=== PATIENT | female | born 1980 | race Asian ===

== ENCOUNTER → 2023-09-23 | Outpatient (CLI) | payer MEDICAID, SELFPAY ==
[2023-09-23 12:29] LABS: Absolute Lymphocyte Count 1.78 X10^3/uL (0.83-4.51); Absolute Neutrophil Count 3.2 X10^3/uL (2.0-7.7); Basophil# 0.12 X10^3/uL; Eosinophils% 11.5 % (0-5); Hematocrit 36.9 % (37-47); Hemoglobin 12.1 g/dL (12.0-15.0); Lymphocyte # 1.78 X10^3/ul (0.83-4.51); Lymphocyte % 29.2 % (19-41); Mean Corp Hgb Conc 32.8 g/dL (32-36); Mean Corpuscular Hgb 27.6 pg (27.0-32.0); Mean Corpuscular Volume 84.2 fL (81-99); Mean Platelet Vol. 8.9 fl (6.2-12.0); Monocyte# 0.32 X10^3/uL; Monocyte% 5.2 % (0-10); NRBC Flagged by Analyzer 0 % (0-5); Neutrophil # 3.16 X10^3/uL (2.7-7.7); Neutrophil % 51.8 % (47-70); Platelet Count 443 K/mm3 (150-450); RBC Distribution Width CV 12.7 % (11.6-14.6); RBC Distribution Width SD 39.1 fl (35.1-43.9); Red Blood Count 4.38 M/mm3 (4.2-5.4); White Blood Count 6.1 K/mm3 (4.4-11.0)
[2023-09-23 13:16] LABS: ALB/GLOB Ratio 1.1 RATIO (0.9-2.4); AST(SGOT) 23 U/L (15-37); Alanine Aminotransfer ALT/SGPT 26 U/L (13-56); Albumin, Serum 3.9 g/dL (3.2-5.0); Alkaline Phosphatase 41 U/L (45-117); Anion Gap 5 (5-15); BUN 10 mg/dL (7-18); BUN/Creat Ratio 12.9 RATIO (10-20); Calcium,Total 8.8 mg/dL (8.5-10.1); Chloride 107 mmol/L (98-107); Cholesterol 218 mg/dL (200); Creatinine, Serum 0.78 mg/dL (0.55-1.02); EST Glomerular Filtration Rate 85 mL/min (>60); Est Glom Filt Rate - Afr Amer 103 mL/min (>60); Globulin 3.7 g/dL (2.2-4.2); Glucose 117 mg/dL (74-106); High Density Lipoprotein 43 mg/dL; Potassium 4.2 mmol/L (3.5-5.1); Protein, Total 7.6 g/dL (6.4-8.2); Sodium Level 139 mmol/L (136-145); Triglycerides 315 mg/dL; Very Low Density Lipoprotein 63 mg/dL (5-40); Vitamin D,25 Hydroxy 21.2 ng/mL
== END | disposition home or self-care (01) ==
LOC: BIMLAB 10:18
PROVIDERS: PCP Internal Medicine; Referring Provider Internal Medicine; Visit Provider Internal Medicine
DX: E11.9 Type 2 diabetes mellitus without complications (principal); E55.9 Vitamin D deficiency, unspecified
CPT/HCPCS: 36415; 80053; 80061; 82306; 85025

== ENCOUNTER → 2023-09-25 | Outpatient (CLI) | payer MEDICAID, SELFPAY ==
[2023-09-25 12:59] LABS: Microalbumin,Random Urine 14.3 mg/L (NO RANGE EST.); Microalbumin:Creatinine Ratio 6.8 mg/g CRE (<30 mg/g CRE)
== END | disposition home or self-care (01) ==
LOC: BIMLAB 10:40
PROVIDERS: PCP Internal Medicine; Referring Provider Internal Medicine; Visit Provider Internal Medicine
DX: E11.9 Type 2 diabetes mellitus without complications (principal)
CPT/HCPCS: 82043; 82570

== ENCOUNTER → 2023-10-29 | Outpatient (CLI) | payer MEDICAID, SELFPAY ==
--- NOTE | 2023-10-29 08:40 | BI_ITS ---
MAMMOGRAPHY - BILATERAL SCREENING REASON FOR EXAM: Female, 43 years old. Routine annual screening examination. PERTINENT HISTORY: Non-contributory. TECHNIQUE: Digital bilateral breast pascale (3D mammographic acquisition) in the CC and MLO projections. 2-D mediolateral oblique (MLO) and craniocaudad (CC) views of both breasts were obtained. CAD: Full Field Digital Mammography with Computer Added Detection was performed. COMPARISON: Comparison is made with prior outside examination dated October 26, 2022. FINDINGS: Breast Composition: The breasts are heterogeneously dense, which may obscure small masses. There are no dominant masses or suspicious calcifications. Stable small benign appearing bilateral axillary lymph nodes. No other significant abnormalities are identified. There has been no significant change since the prior study. BI/SCRN MAMM (CAD)W/PASCALE BILAT IMPRESSION: Stable bilateral screening mammogram. Yearly follow-up mammogram recommended. (A) ASSESSMENT CATEGORY: BIRADS Category 1: Negative. A letter regarding these results will be sent to the patient by the facility within 30 days. Approximately 10% of breast cancers are not detected by mammography. A normal mammogram should not delay biopsy of a clinically suspicious abnormality. [id number] Electronically Signed: Eris Pollard MD at 11:19 EDT ,
== END | disposition home or self-care (01) ==
PROVIDERS: PCP Internal Medicine; Referring Provider Internal Medicine; Visit Provider Internal Medicine
DX: Z12.31 Encounter for screening mammogram for malignant neoplasm of breast (principal)
CPT/HCPCS: 77063; 77067

== ENCOUNTER 2024-01-17 08:30 | Day surgery (SDC) | payer MEDICAID, SELFPAY ==
[2024-01-17] VITALS (7 sets, daily range): BP systolic 99–116; BP diastolic 64–70; PULSE 62–80; RESP 16–17; TEMP 36.1–36.3; O2SAT 97–100; BMI 27.8
--- NOTE | 2024-01-17 08:43 | PCM.PRE.AN2 ---
ASA Classification* ASA Classification ASA Classification: 3 Assessment & Plan Anesthesia* Anesthesia Assessment Anesthesia Assessment: Discussed sedation and/or anesthesia options, risks, benefits, and alternatives with patient/parents/legal guardian/POA. Questions invited. The patient/parents/legal guardian/POA seems to understand and agrees to proceed with anesthesia plan. Reviewed the physical assessment, medical history, allergy history and patient home medications list prior to surgery/procedure/anesthetic and documented any changes. Performed airway and anesthesia risk assessments. Anesthesia Type Anesthesia Type: MAC (see written pre anesthesia record for full assessment) Anesthesia Focused Assessment* Airway Assessment Mouth opens: >3 cm Mallampati Score: II Focused Labs Anesthesia Preop lab: CBC WBC 6.1 K/mm3 (4.4-11.0) 09/23/23 10:19 RBC 4.38 M/mm3 (4.2-5.4) 09/23/23 10:19 Hgb 12.1 g/dL (12.0-15.0) 09/23/23 10:19 Hct 36.9 % (37-47) L 09/23/23 10:19 Plt Count 443 K/mm3 (150-450) 09/23/23 10:19 CHEMISTRY Potassium 4.2 mmol/L (3.5-5.1) 09/23/23 10:19 Sodium 139 mmol/L (136-145) 09/23/23 10:19 BUN 10 mg/dL (7-18) 09/23/23 10:19 Creatinine 0.78 mg/dL (0.55-1.02) 09/23/23 10:19 Glucose 117 mg/dL (74-106) H 09/23/23 10:19 COAG Pre-Assessment Diagnosis/Proposed Procedure Planned Operative Procedure(s): EGD, CSCOPE Anesthesia History Anesthesia History - field services manager: Anesthesia History - field services manager Hx Hospitalization No 01/15/24 10:25 Any Problems With Anesthesia No 01/15/24 10:25 Cholinesterase deficiency No 01/15/24 10:25 You/Your Family Experience No 01/15/24 10:25 fever (hyperthermia) with Relationship Recent Exposure to Contagious Disease Does patient have nerve No 01/15/24 10:25 stimulator Patient instructed to have device shut off --Does patient have Pacemaker or ICD? When Was Last Pacemaker Check QUESTION #4 FULL TEXT: You/Your Family Experience fever (hyperthermia) with Anesthesia Last Oral Intake Last Oral intake: Last Oral Intake NPO since Meds taken in AM with sips of water? Meds patient instructed to take am of surgery PONV PONV - field services manager: PONV - field services manager Female Yes 01/15/24 10:25 HX of Motion Sickness Yes 01/15/24 10:25 HX of N/V After Surgery No 01/15/24 10:25 Non-Smoker Yes 01/15/24 10:25 Duration of Surgery greater No 01/15/24 10:25 than 60 minutes Number of Risk Factors 3 01/15/24 10:25 PONV Score Moderate Risk 01/15/24 10:25 Height & Weight Height & Weight: Anesthesia: Height & Weight Height 5 ft 2 in 10/17/23 15:16 Respiratory Assessment Respiratory Assessment - field services manager: Respiratory Tract Infection Hx - field services manager Hx Respiratory Tract Infection No 01/15/24 10:25 STOP Sleep Apnea STOP Sleep Apnea - field services manager: STOP Sleep Apnea - field services manager Hx Hypertension No 01/15/24 10:25 Hx Sleep Apnea No 01/15/24 10:25 CPAP BIPAP Do you snore loudly (louder No 01/15/24 10:25 than talking or can be heard Do you often feel tired/ No 01/15/24 10:25 fatigued/ sleepy during daytime? Has anyone observed you stop No 01/15/24 10:25 breathing during sleep? STOP Results Negative 01/15/24 10:25 QUESTION #5 FULL TEXT : Do you snore loudly (louder than talking or can be heard through closed doors)? Tobacco Use History Tobacco Use History - field services manager: Tobacco Use History - field services manager Tobacco Use Smoking Status Former smoker 01/15/24 10:25 Hx Tobacco Use No 01/15/24 10:25 Years Smoking Packs Smoked per Day Smoking Cessation Date was Yes - quit smoking within 15 01/15/24 10:25 within the last 15 years years Hx Smoking Cessation Date 06/10/13 01/15/24 10:25 Hx Smoking Cessation Counseling Hematologic Medial History Hematologic Hx - field services manager: Hematologic Medical Hx - [employer] certified network professional Hx of Blood Transfusion No 01/15/24 10:25 Hx of Transfusion in last 3 No 01/15/24 10:25 Months Date of Last Transfusion (if within last 3 months) Ever experience any problems No 01/15/24 10:25 with transfusion(s)? Specify any problems Hx of Preganancy in last 3 No 01/15/24 10:25 Months Nurse Filling Out Transfusion VCHRISTIN 01/15/24 10:25 & Questions: Date: 01/15/24 01/15/24 10:25 Time: 10:25 01/15/24 10:25 Patient unable to answer at this time (ie. confused, unrespo /Reproduction History /Reproductive History - field services manager: /Reproductive Hx- field services manager Hx Now No 01/15/24 10:25 Gestational Age (in weeks): EDC: Hx Hx Para Hx Section SAB No 01/15/24 10:25 Active Medications Active Medications: Current Medications Generic Name Dose Route Start Last Admin Trade Name Freq PRN Reason Stop Dose Admin Lactated Ringer's 1,000 mls @ 15 mls/hr 01/17/24 08:45 IV .Q48H RAMON PFSH Medical History Wears glasses Anxiety Marijuana use Fatty liver Migraine headache High cholesterol History of back problems IBS (irritable bowel syndrome) Hyperlipemia, fat-induced Frequent headaches Depression Diabetes Arthritis Allergies Home Medications ?Medication ?Instructions ?Recorded ?Last Taken ?Type albuterol sulfate 90 mcg/actuation 2 puff inhalation Q6H PRN 09/23/23 Unknown Rx aerosol inhaler shortness of breath or wheezing #8.5 grams flash glucose scanning reader 09/23/23 Unknown History (FreeStyle Ileana 2 [place]) ibuprofen 200 mg capsule 200 mg PO Q6H PRN pain 09/23/23 Unknown History omeprazole 20 mg capsule,delayed 20 mg PO DAILY #30 caps 09/23/23 Unknown Rx release ondansetron 4 mg disintegrating 4 mg PO Q8 PRN nausea and vomiting 09/23/23 Unknown History tablet bupropion HCl 150 mg 24 hr tablet, 150 mg PO QAM #30 tabs 10/17/23 Unknown Rx extended release (Wellbutrin XL) flash glucose sensor (FreeStyle #6 ea 11/20/23 Unknown Rx Ileana 2 Sensor kit) metformin 1,000 mg tablet 1,000 mg PO BID #180 tabs 11/20/23 Unknown Rx montelukast 10 mg tablet 10 mg PO QDAY #90 tabs 11/20/23 Unknown Rx sertraline 50 mg tablet 50 mg PO DAILY #90 tabs 11/20/23 Unknown Rx dulaglutide 1.5 mg/0.5 mL 1.5 mg subcut MO 12/03/23 01/06/24 History subcutaneous pen injector (Trulicity) atorvastatin 10 mg tablet (Lipitor) 10 mg PO QHS #90 tabs 12/05/23 Unknown Rx fexofenadine 180 mg tablet 180 mg PO DAILY 01/15/24 Unknown History ([facility] Allergy) Allergy/AdvReac Type Severity Reaction Status Date / Time No Known Allergies Allergy Verified 12/03/23 12:29 Family History Mother Anesthesia complication Thyroid disorder Kidney disease Diabetes Hypertension Heart disease Brother Asthma Angina pectoris Hyperlipemia Myocardial infarction, Onset Age: 45 Diabetes Grandfather Cancer liver Liver disease Depression Grandmother Cancer Grandmother Colon cancer Sister Depression Father Depression Surgical History S/P appendectomy S/P partial hysterectomy History of ankle surgery Social History adopted: No household members: children number of children: 1 current occupational status: unemployed pets and animals: Yes (2) pets and animals: cat(s) Smoking Status: Former smoker quit date: 06/10/07 pack-years: 3 Tobacco: How many years used: 10 alcohol intake: current alcohol intake frequency: a few times a month substance use type: marijuana caffeine: Yes (1) Type: coffee and tea frequency: 1-2 times per week seatbelt use: always do you feel safe at home: Yes Review of Systems (Anesthesia) ROS Narrative System reviewed and no additional complaints, except as documented.
[2024-01-17] MEDS: Lactated Ringers 1,000 ML 15 ML IV (08:59)
--- NOTE | 2024-01-17 09:37 | HP.PCM_ITS ---
History and Physical Date of Admission: 01/17/24 Intake Vital Signs 09/22/2408:23 10/16/2414:16 Height 5 ft 2 in 5 ft 2 in Weight: 160 lb 154 lb BMI 29.2 28.1 BP 114/72 136/77 H Blood Pressure Location Lt brachial Rt brachial Position Sitting Sitting Respiration 14 18 Pulse 94 Pulse Source Monitor Temp 98 F Temp Source Temporal Pulse Oximetry (%) 94 Oxygen Delivery Method room air Intake Visit Reasons: GERD/SCREENING COLONOSCOPY Chief Complaint: c-scope/egd Circular Saw Filer Required: No Is patient in pain?: No Allergies No Known Allergies Allergy (Unverified 10/17/23 15:17) Medications albuterol sulfate 90 mcg/actuation aerosol inhaler 2 puff inhalation Q6H PRN shortness of breath or wheezing #8.5 grams 09/23/23 [Rx Confirmed 10/17/23] flash glucose scanning reader ([employer] Ileana 2 [place]) 09/23/23 [History Confirmed 10/17/23] ibuprofen 200 mg capsule 200 mg PO Q6H PRN 09/23/23 [History Confirmed 10/17/23] loperamide 2 mg capsule (Imodium A-D) 2 mg PO Q6H PRN 09/23/23 [History Confirmed 10/17/23] metformin 1,000 mg tablet 1,000 mg PO BID 09/23/23 [History Confirmed 10/17/23] montelukast 10 mg tablet 10 mg PO QDAY 09/23/23 [History Confirmed 10/17/23] omeprazole 20 mg capsule,delayed release 20 mg PO DAILY #30 caps 09/23/23 [Rx Confirmed 10/17/23] ondansetron 4 mg disintegrating tablet 4 mg PO Q8 PRN 09/23/23 [History Confirmed 10/17/23] atorvastatin 10 mg tablet (Lipitor) 10 mg PO QHS #30 tabs 09/25/23 [Rx Confirmed 10/17/23] bupropion HCl 150 mg 24 hr tablet, extended release (Wellbutrin XL) 150 mg PO QAM #30 tabs 10/17/23 [Rx Confirmed 10/17/23] dulaglutide 1.5 mg/0.5 mL subcutaneous pen injector (Trulicity) 1.5 mg (0.5 mL) subcut QWEEK #2 mL 10/17/23 [Rx Confirmed 10/17/23] flash glucose sensor (FreeStyle Ileana 2 Sensor kit) #1 ea 10/17/23 [Rx Confirmed 10/17/23] sertraline 50 mg tablet 50 mg PO DAILY #30 tabs 10/17/23 [Rx Confirmed 10/17/23] PFSH Medical History Allergies Arthritis Depression Diabetes Frequent headaches History of back problems Hyperlipemia, fat-induced IBS (irritable bowel syndrome) Surgical History History of ankle surgery S/P appendectomy S/P partial hysterectomy Family History Mother Anesthesia complication Thyroid disorder Kidney disease Diabetes Hypertension Heart diseaseBrother Asthma Angina pectoris Hyperlipemia Myocardial infarction, Onset Age: 45 DiabetesGrandfather Cancer liver Liver disease DepressionGrandmother CancerGrandmother Colon cancerSister DepressionFather Depression Social History adopted: No household members: children number of children: 1 current occupational status: unemployed pets and animals: Yes (2) pets and animals: cat(s) Smoking Status: Former smoker quit date: 06/10/07 pack-years: 3 Tobacco: How many years used: 10 alcohol intake: current alcohol intake frequency: a few times a month substance use type: marijuana caffeine: Yes (1) Type: coffee and tea frequency: 1-2 times per week seatbelt use: always do you feel safe at home: Yes HPI HPI HPI: Patient is a 43-year-old female here for dysphagia and for screening colonoscopy. She reports that she feels something in the back of her throat and feels like she is also clearing her throat a lot. She reports that she feels food and drinks sticking in the back of her throat and not able to pass. She says she has been on omeprazole for 2 weeks and it is improving things but it is not gone yet. She denies abdominal pain or blood in her stool. She has no family history of colon cancer. ROS General General: Yes weight change and fatigue; No appetite, colon cancer, breast cancer or weakness HEENT HEENT: Yes difficulty swallowing; No eye injury, eye surgery, swollen glands or hoarseness Endo Endocrine: Yes diabetes mellitus; No thyroid disease, thyroid cancer, Hair loss, heat intolerance or cold int olerance Skin Skin: Yes rash; No changing moles Breast Breast: No left breast lump, right breast lump, nipple discharge, breast pain, abnormal mammogram, abnormal US or breast enlargement Musc Musculoskeletal: Yes back problems and arthritis; No rheumatoid arthritis, gout or joint pain Cardio Cardiovascular: No murmur, pacemaker, heart disease, atrial fibrillation, high blood pressure, heart attack, heart stent, palpitations, shortness of breat with exertion or chest pain Psych Psychiatric: Yes depression and anxiety; No hearing voices Resp Respiratory: Yes shortness of breath, No sleep apnea, Yes cough, No COPD, Yes asthma, No emphysema and No wheezing Gastro Gastrointestinal: No abdominal pain, Yes nausea or vomiting, Yes diarrhea, Yes constipation, No blood in stool, Yes acid reflux, No hemorrhoids, No ulcers, No gallbladder problem and No black,tarry stools Ki Hematologic: No blood thinners, No blood disorders, No bleeding, No anemia and No blood clots Neuro Neurologic: No system reviewed and no additional complaints, except as documented, No as per HPI, No abnormal gait, No abnormal hearing, No abnormal movements, No abnormal speech, No behavioral changes, No burning sensations, No confusion, No convulsions, No disequilibrium, No dizziness, No localized weakness, No frequent falls, No headache(s), No lack of coordination, No loss of vision, No memory loss, Yes numbness, No other visual disturbances, No radicular pain, No restless legs, No sensory deficit, No syncope, Yes tingling, No tremor(s), No weakness and No other Exam Const General: cooperative Orientation: alert and oriented x3 HENMT Head: normal to inspection Neck Neck: normal visual inspection and full ROM Chest Chest palpation & inspection: normal inspection of the chest Resp Effort & Inspection: normal respiratory effort Auscultation: clear to auscultation bilaterally Cardio Rate: regular rate Rhythm: regular rhythm GI Inspection: non-distended Palpation: soft and nontender Skin General: no rashes or lesions noted Neuro General: patient alert and patient oriented x3 Extrem General: full ROM Psych Appearance: grossly normal Mental Status: mental status grossly normal Assessment and Plan Assessment and Plan (1) Encounter for screening for malignant neoplasm of colon: Status: Acute Plan: Patient is due for her first screening colonoscopy. I explained endoscopy in detail to the patient. I explained the risks including but not limited to stroke or heart attack with anesthesia, perforation of the GI tract, bleeding, infection. I explained that any of these could necessitate further emergency surgery. The patient understands and all questions were answered sufficiently. The patient wishes to proceed with procedure. (2) Dysphagia: Status: Acute Qualifiers: Dysphagia type: esophageal phase Qualified Code(s): R13.19 - Other dysphagia Plan: The patient is also been having globus sensation and dysphagia. She has been on a PPI for 2 weeks and I encouraged her to continue this until we scope. Plan for double scope so I can evaluate the esophagus and possibly dilate. I discussed dilation with her and the increased risk of bleeding and perforation and she is agreeable to proceed. Steven Delgadillo MD Pager: [facility] [address] [place] [address], [address] [place] [address] Office: I have examined the patient and the H&P has been reviewed. There are no clinical changes since date of exam.
--- NOTE | 2024-01-17 10:08 | OP.CCLET_ITS ---
01/17/2024 Lucy Paul Md Re : Upper GI endoscopy procedure for Deepa Ravi Dear Humberto This procedure was performed on Wednesday, January 17, 2024. My impressions and recommendations are as follows: Impressions : - Normal esophagus. - Normal stomach. - Normal examined duodenum. - No specimens collected. Recommendations : - Discharge patient to home. - Resume previous diet. - Continue present medications. My findings are described in the full procedure note, which is enclosed. If I can be of further assistance, please feel free to contact me at Doctor phone number(s): , Work: . Sincerely, Steven Delgadillo MD 01/17/2024 10:07:46 AM This report has been signed electronically.
--- NOTE | 2024-01-17 10:08 | OP.EGD_ITS ---
Patient Name: Deepa Ravi Procedure Date: 01/17/2024 9:42 AM Date of : 1980 Age: 43 Procedure: Upper GI endoscopy Indications: Dysphagia Providers: Steven Delgadillo MD Referring MD: Lucy Paul Md Medicines: Propofol per Anesthesia Patient Profile: This is a 43 year old female. Refer to note in patient chart for documentation of history and physical. Complications: No immediate complications. Procedure: Pre-Anesthesia Assessment: - Prior to the procedure, a History and Physical was performed, and patient medications and allergies were reviewed. The patient's tolerance of previous anesthesia was also reviewed. The risks and benefits of the procedure and the sedation options and risks were discussed with the patient. All questions were answered, and informed consent was obtained. Prior Anticoagulants: The patient has taken no anticoagulant or antiplatelet agents. ASA Grade Assessment: II - A patient with mild systemic disease. After reviewing the risks and benefits, the patient was deemed in satisfactory condition to undergo the procedure. After obtaining informed consent, the endoscope was passed under direct vision. Throughout the procedure, the patient's blood pressure, pulse, and oxygen saturations were monitored continuously. The gastroscope was introduced through the mouth, and advanced to the fourth part of duodenum. The upper GI endoscopy was accomplished without difficulty. The patient tolerated the procedure well. Scope In: 9:51:23 AM Scope Out: 9:54:28 AM Total Procedure Duration Time 0 hours 3 minutes 5 seconds Findings: The esophagus was normal. The stomach was normal. The examined duodenum was normal. Impression: - Normal esophagus. - Normal stomach. - Normal examined duodenum. - No specimens collected. Recommendation: - Discharge patient to home. - Resume previous diet. - Continue present medications. Procedure Code(s): --- Professional --- 12379, Esophagogastroduodenoscopy, flexible, transoral; diagnostic, including collection of specimen(s) by brushing or washing, when performed (separate procedure) Diagnosis Code(s): --- Professional --- R13.10, Dysphagia, unspecified CPT copyright 2021 [employer]. All rights reserved. The codes documented in this report are preliminary and upon social services assistant review may be revised to meet current compliance requirements. Steven Delgadillo MD 01/17/2024 10:07:46 AM This report has been signed electronically. Number of Addenda: 0 Note Initiated On: 01/17/2024 9:42 AM
--- NOTE | 2024-01-17 10:09 | OP.COLON_ITS ---
Patient Name: Deepa Ravi Procedure Date: 01/17/2024 9:55 AM Date of : 1980 Age: 43 Procedure: Colonoscopy Indications: Screening for colorectal malignant neoplasm Providers: Steven Delgadillo MD Referring MD: Lucy Paul Md Patient Profile: This is a 43 year old female. Refer to note in patient chart for documentation of history and physical. Last Colonoscopy: none. The patient's first colonoscopy is today. Complications: No immediate complications. Procedure: Pre-Anesthesia Assessment: - Prior to the procedure, a History and Physical was performed, and patient medications and allergies were reviewed. The patient's tolerance of previous anesthesia was also reviewed. The risks and benefits of the procedure and the sedation options and risks were discussed with the patient. All questions were answered, and informed consent was obtained. Prior Anticoagulants: The patient has taken no anticoagulant or antiplatelet agents. ASA Grade Assessment: II - A patient with mild systemic disease. After reviewing the risks and benefits, the patient was deemed in satisfactory condition to undergo the procedure. - Prior to the procedure, a History and Physical was performed, and patient medications and allergies were reviewed. The patient's tolerance of previous anesthesia was also reviewed. The risks and benefits of the procedure and the sedation options and risks were discussed with the patient. All questions were answered, and informed consent was obtained. Prior Anticoagulants: The patient has taken no anticoagulant or antiplatelet agents. After reviewing the risks and benefits, the patient was deemed in satisfactory condition to undergo the procedure. After I obtained informed consent, the scope was passed under direct vision. Throughout the procedure, the patient's blood pressure, pulse, and oxygen saturations were monitored continuously. The Colonoscope was introduced through the anus and advanced to the cecum, identified by appendiceal orifice and ileocecal valve. The colonoscopy was performed without difficulty. The patient tolerated the procedure well. The quality of the bowel preparation was good. The ileocecal valve, appendiceal orifice, and rectum were photographed. Scope In: 9:56:45 AM Scope Withdrawal Time 0 hours 5 minutes 28 seconds Scope Out: 10:05:40 AM Total Procedure Duration Time 0 hours 8 minutes 55 seconds Findings: The entire examined colon appeared normal on direct and retroflexion views. Impression: - The entire examined colon is normal on direct and retroflexion views. - No specimens collected. Recommendation: - Discharge patient to home. - Resume previous diet. - Continue present medications. - Repeat colonoscopy in 10 years for screening purposes. Procedure Code(s): --- Professional --- 90163, Colonoscopy, flexible; diagnostic, including collection of specimen(s) by brushing or washing, when performed (separate procedure) Diagnosis Code(s): --- Professional --- Z12.11, Encounter for screening for malignant neoplasm of colon CPT copyright 2021 [employer]. All rights reserved. The codes documented in this report are preliminary and upon wind turbine engineer review may be revised to meet current compliance requirements. Steven Delgadillo MD 01/17/2024 10:09:16 AM This report has been signed electronically. Number of Addenda: 0 Note Initiated On: 01/17/2024 9:55 AM
--- NOTE | 2024-01-17 10:10 | OP.CCLET_ITS ---
01/17/2024 Lucy Paul Md Re : Colonoscopy procedure for Deepa Ravi Dear Humberto This procedure was performed on Wednesday, January 17, 2024. My impressions and recommendations are as follows: Impressions : - The entire examined colon is normal on direct and retroflexion views. - No specimens collected. Recommendations : - Discharge patient to home. - Resume previous diet. - Continue present medications. - Repeat colonoscopy in 10 years for screening purposes. My findings are described in the full procedure note, which is enclosed. If I can be of further assistance, please feel free to contact me at Doctor phone number(s): , Work: . Sincerely, Steven Delgadillo MD 01/17/2024 10:09:16 AM This report has been signed electronically.
--- NOTE | 2024-01-17 10:15 | PCM.POST.ANE ---
Anesthesia: Postop Eval I Current Vital Signs Temperature: 97.1 F Pulse Rate: 62 Blood Pressure: 116/69 Respiratory Rate: 16 Pulse Ox: 98 Oxygen Delivery Method: Room Air Assessment Airway patent: Yes Spontaneous unlabored respirations: Yes Mental status: Asleep nausea: No Vomiting: No Anesthesia Complication: No Fluid Hydration Crystalloid volume administer (ml): 800 Total IV fluid infused: 800 Progress Note Anesthesia document: Postop Eval 1 completed: Yes
[2024-01-17 10:32] LABS: Bedside Glucose 184 mg/dL (74-106)
--- NOTE | 2024-01-17 10:32 | PCM.POSTANE2 ---
Anesthesia Postop Eval I Sum Postop Eval Completion status Anesthesia document: Postop Eval 1 completed: Yes Anesthesia Postop Eval I Summary Anesthesia Postop Eval I Summary: Anesthesia Postop Eval I: Assessment Summary Airway patent Yes 01/17/24 10:16 [email or web address] Spontaneous unlabored Yes 01/17/24 10:16 [email or web address] respirations Mental status Asleep 01/17/24 10:16 [email or web address] nausea No 01/17/24 10:16 [email or web address] Vomiting No 01/17/24 10:16 [email or web address] Anesthesia Postop Eval I: Fluid Summary Crystalloid volume administer 800 01/17/24 10:16 [email or web address] (ml) Colloids volume administered ( ml) Blood Product volume administered (ml) Total IV fluid infused 800 01/17/24 10:16 [email or web address] Anesthesia Postop Eval I: Summary Notes Anesthesia Complication No 01/17/24 10:16 [email or web address] Anesthesia Complication Comment: Post-operative progress note Anesthesia: Postop Eval II Evaluation Mental status: Awake Pain Level: 0 nausea: No Vomiting: No
== END 2024-01-17 10:48 | disposition home or self-care (01) ==
LOC: EN 08:32 → AC 08:33
PROVIDERS: PCP Internal Medicine; Referring Provider Internal Medicine; Visit Provider Surgery
PROC: 0DJD8ZZ Inspection of Lower Intestinal Tract, Via Natural or Artificial Opening Endoscopic (ICD-10-PCS; CPT 45378; principal; 2024-01-17 09:25)
DX: Z12.11 Encounter for screening for malignant neoplasm of colon (principal); E11.9 Type 2 diabetes mellitus without complications; Z87.891 Personal history of nicotine dependence; E78.5 Hyperlipidemia, unspecified; Z90.49 Acquired absence of other specified parts of digestive tract; Z90.710 Acquired absence of both cervix and uterus; Z79.899 Other long term (current) drug therapy; Z79.84 Long term (current) use of oral hypoglycemic drugs; F32.A Depression, unspecified; R13.10 Dysphagia, unspecified
CPT/HCPCS: 45378; 43235; 82962; J7120; J2405

== ENCOUNTER → 2024-03-25 | Outpatient (CLI) | payer MEDICAID, SELFPAY ==
[2024-03-25 12:21] LABS: Absolute Lymphocyte Count 1.94 X10^3/uL (0.83-4.51); Absolute Neutrophil Count 5.9 X10^3/uL (2.0-7.7); Basophil% 2.1 % (0-1); Eosinophil# 1.14 X10^3/uL; Eosinophils% 11.8 % (0-5); Hematocrit 41.2 % (37-47); Hemoglobin 13.4 g/dL (12.0-15.0); Lymphocyte # 1.94 X10^3/ul (0.83-4.51); Lymphocyte % 20.1 % (19-41); Mean Corp Hgb Conc 32.5 g/dL (32-36); Mean Corpuscular Hgb 27.5 pg (27.0-32.0); Mean Corpuscular Volume 84.4 fL (81-99); Mean Platelet Vol. 9.1 fl (6.2-12.0); Monocyte# 0.45 X10^3/uL; Monocyte% 4.7 % (0-10); NRBC Flagged by Analyzer 0 % (0-5); Neutrophil # 5.91 X10^3/uL (2.7-7.7); Platelet Count 499 K/mm3 (150-450); RBC Distribution Width SD 39.7 fl (35.1-43.9); Red Blood Count 4.88 M/mm3 (4.2-5.4); White Blood Count 9.7 K/mm3 (4.4-11.0)
[2024-03-25 12:59] LABS: AST(SGOT) 13 U/L (15-37); Alanine Aminotransfer ALT/SGPT 19 U/L (13-56); Albumin, Serum 4.2 g/dL (3.2-5.0); Alkaline Phosphatase 47 U/L (45-117); Anion Gap 9 (5-15); BUN 18 mg/dL (7-18); BUN/Creat Ratio 19.5 RATIO (10-20); Calcium,Total 9.2 mg/dL (8.5-10.1); Chloride 103 mmol/L (98-107); Cholesterol 146 mg/dL (200); Creatinine, Serum 0.92 mg/dL (0.55-1.02); EST Glomerular Filtration Rate 70 mL/min (>60); Est Glom Filt Rate - Afr Amer 85 mL/min (>60); Glucose 156 mg/dL (74-106); High Density Lipoprotein 50 mg/dL; Protein, Total 8.2 g/dL (6.4-8.2); Sodium Level 136 mmol/L (136-145); Triglycerides 244 mg/dL; Very Low Density Lipoprotein 49 mg/dL (5-40)
== END | disposition home or self-care (01) ==
LOC: BIMLAB 08:30
PROVIDERS: PCP Internal Medicine; Referring Provider Internal Medicine; Visit Provider Internal Medicine
DX: E11.9 Type 2 diabetes mellitus without complications (principal); E78.2 Mixed hyperlipidemia; K21.9 Gastro-esophageal reflux disease without esophagitis
CPT/HCPCS: 36415; 80053; 80061; 82306; 85025